=== PATIENT | male | born 1985 | race American Indian/Alaskan Native ===

== ENCOUNTER 2016-08-25 17:17 | Emergency (ER) | payer SELFPAY ==
--- NOTE | 2016-08-25 18:09 | Emergency Department Report ---
ED Male HPI - General Chief complaint: Urogenital-Male Stated complaint: TESTICULAR PAIN/SWOLLEN Source: patient Mode of arrival: Ambulatory Limitations: No Limitations - History of Present Illness Initial comments: Patient here complaining that he had pain and swelling to his left testicle for the last couple days. Denies any urinary burning frequency or urgency. Denies abdominal pain. Denies any back pain. Denies Trauma. He reports chills. Reports pain level to be 6 out of 10. Denies any penile discharge or erythema. Any nausea vomiting. Denies Concern for STDs. Denies any blood in urine. MD Complaint: testicle pain, testicle swelling Onset/Timin -: days(s) Location: left testicle Radiation: none Severity: severe Severity scale (0 -10): 6 Quality: aching Improves with: none Worsens with: palpation, movement denies other symptoms - Related Data Sexually active: Yes Previous Rx's Medication Instructions Recorded Last Taken Type Ibuprofen [Motrin] 600 mg PO Q8H PRN #15 tablet 08/25/16 Unknown Rx Levofloxacin [Levaquin TAB] 500 mg PO QDAY #7 tablet 08/25/16 Unknown Rx Allergies Allergy/AdvReac Type Severity Reaction Status Date / Time No Known Allergies Allergy Verified 08/25/16 17:53 ED Review of Systems ROS: Stated complaint: TESTICULAR PAIN/SWOLLEN Other details as noted in HPI Comment: All other systems reviewed and negative Constitutional: chills. denies: malaise, weakness Respiratory: no symptoms reported Cardiovascular: denies: chest pain, palpitations, edema, syncope Gastrointestinal: denies: abdominal pain, nausea, vomiting, diarrhea, constipation Genitourinary: testicular pain. denies: frequency, hematuria, discharge, testicular mass Musculoskeletal: denies: back pain, arthralgia Skin: denies: rash Neurological: denies: headache ED Past Medical Hx - Past Medical History Previous Medical History?: No - Surgical History Past Surgical History?: No - Family History Family history: hypertension - Social History Smoking Status: Current Every Day Smoker Substance Use Type: Alcohol - Medications Home Medications: Home Medications Medication Instructions Recorded Confirmed Last Taken Type Ibuprofen [Motrin] 600 mg PO Q8H PRN #15 tablet 08/25/16 Unknown Rx Levofloxacin [Levaquin TAB] 500 mg PO QDAY #7 tablet 08/25/16 Unknown Rx ED Physical Exam - General Limitations: No Limitations General appearance: alert, in no apparent distress - Head Head exam: Present: atraumatic, normocephalic, normal inspection - Eye Eye exam: Present: normal appearance, PERRL, EOMI Pupils: Present: normal accommodation - ENT ENT exam: Present: normal exam, normal orophraynx, mucous membranes moist, TM's normal bilaterally, normal external ear exam - Respiratory Respiratory exam: Present: normal lung sounds bilaterally. Absent: respiratory distress - Cardiovascular Cardiovascular Exam: Present: regular rate, normal rhythm, normal heart sounds - GI/Abdominal GI/Abdominal exam: Present: soft, normal bowel sounds. Absent: distended, tenderness, guarding, rebound, rigid - exam: Present: testicular tenderness (left), scrotal swelling (left). Absent : urethral discharge, circumcision External exam: Present: normal external exam, swelling. Absent: erythema, lesions, lacerations, ecchymosis, bleeding - Expanded Exam Expanded Male exam: Absent: phimosis, paraphimosis, penile swelling, lesions, induration, erythema, perineal induration, balanitis, priapism exam: Testicular Tenderness: Left, Testicular Swelling: Left, Epididymal Tenderness: Left - Extremities Exam Extremities exam: Present: normal inspection, full ROM, normal capillary refill. Absent: tenderness, pedal edema - Back Exam Back exam: Present: normal inspection, full ROM. Absent: tenderness, CVA tenderness (R), CVA tenderness (L), muscle spasm, paraspinal tenderness, vertebral tenderness, rash noted - Neurological Exam Neurological exam: Present: alert, oriented X3, normal gait - Psychiatric Psychiatric exam: Present: normal affect, normal mood - Skin Skin exam: Present: warm, dry, intact, normal color. Absent: rash ED Course Vital Signs 08/25/16 08/25/16 17:47 18:25 Temperature 100.8 F H Pulse Rate 94 H Respiratory 16 18 Rate Blood Pressure 138/74 O2 Sat by Pulse 98 100 Oximetry Vital Signs 08/25/16 08/25/16 08/25/16 17:47 18:25 19:03 Temperature 100.8 F H 98.2 F Pulse Rate 94 H 75 Respiratory 16 18 16 Rate Blood Pressure 138/74 Blood Pressure 144/75 [Left] O2 Sat by Pulse 98 100 100 Oximetry - Reevaluation(s) Reevaluation #1: 08/25/16 19:56 Patient stable throughout ED course. She was treated empirically for STDs. Tolerated medication well. Vital signs remained stable. He is afebrile. Patient given 1 L of IV fluid in emergency room and pain controlled with [place]. ED Medical Decision Making - Lab Data Result diagrams: 08/25/16 18:09 08/25/16 18:09 Lab Results 08/25/16 08/25/16 08/25/16 Range/Units 18:09 18:09 Unknown WBC 17.6 H (4.5-11.0) K/mm3 RBC 4.99 (3.65-5.03) M/mm3 Hgb 13.7 (11.8-15.2) gm/dl Hct 40.0 (35.5-45.6) % MCV 80 L (84-94) fl MCH 27 L (28-32) pg MCHC 34 (32-34) % RDW 13.6 (13.2-15.2) % Plt Count 280 (140-440) K/mm3 Lymph % (Auto) 9.9 L (13.4-35.0) % [place] % (Auto) 8.0 H (0.0-7.3) % Eos % (Auto) 0.1 (0.0-4.3) % Baso % (Auto) 0.1 (0.0-1.8) % Lymph # 1.7 (1.2-5.4) K/mm3 [place] # 1.4 H (0.0-0.8) K/mm3 Eos # 0.0 (0.0-0.4) K/mm3 Baso # 0.0 (0.0-0.1) K/mm3 Seg Neutrophils % 81.9 H (40.0-70.0) % Seg Neutrophils # 14.5 H (1.8-7.7) K/mm3 Sodium 139 (137-145) mmol/L Potassium 4.6 (3.6-5.0) mmol/L Chloride 98.4 (98-107) mmol/L Carbon Dioxide 28 (22-30) mmol/L Anion Gap 17 mmol/L BUN 9 (9-20) mg/dL Creatinine 0.9 (0.8-1.5) mg/dL Estimated GFR > 60 ml/min BUN/Creatinine Ratio 10.00 % Glucose 98 (75-100) mg/dL Calcium 9.7 (8.4-10.2) mg/dL Urine Bilirubin Neg (Negative) Urine RBC (Auto) 1.0 (0.0-6.0) /HPF U Epithel Cells (Auto) 1.0 (0-13.0) /HPF Urine culture pending - Radiology Data Radiology results: report reviewed Ultrasound of the testes revealed normal blood flow. Suspicious for epididymitis. Probably Left epididymitis. Small left hydrocele - Medical Decision Making ED course: Patient here for left testicular pain and swelling. Ultrasound revealed left epididymitis with hydrocele. I discussed the patient ultrasound results and lab tests and I instructed him that he has bladder infection. Patient is asymptomatic for STDs. He has no concerns for STDs. Patient does have sex with one partner and he said that she said having any symptoms. She patient and present treatment and he agrees. Patient given Rocephin 1 g IV, Zofran 4 mg IV and [place] 5/325 one tablet by mouth. She was also covered with Flagyl 2 g and Zithromax 1 g by mouth. Chin has no adverse reaction from medication. I discussed the patient diagnosis and treatment plan and is in agreement. I discussed with him that he will need to follow-up with primary care physician in 2-3 days and if he does not have one that he will need to follow-up with outside Medical Center. Discussed with him that he needs to converse with his partner that he was treated for STD and particulate in emergency room. Patient discharged home with prescription for Levaquin Critical care attestation.: If time is entered above; I have spent that time in minutes in the direct care of this critically ill patient, excluding procedure time. ED Disposition Clinical Impression: Left epididymitis, Left hydrocele, Left testicular pain, Acute cystitis without hematuria Leukocytosis Qualifiers: Leukocytosis type: unspecified Qualified Code(s): D72.829 - Elevated white blood cell count, unspecified Disposition: DISCHARGED TO HOME OR SELFCARE Is pt being admited?: No Does the pt Need Aspirin: No Condition: Stable Instructions: Epididymitis (ED), Testicle Pain (ED), Hydrocele (ED), Urinary Tract Infection in Men (ED), Leukocytosis (ED) Additional Instructions: Please increase fluid intake Follow-up with her primary care physician in 2-3 days and if you do not have one then follow-up with outside Medical Center. Practice safe sex. Take antibiotic as prescribed. Prescriptions: Levofloxacin [Levaquin TAB] 500 mg PO QDAY #7 tablet Ibuprofen [Motrin] 600 mg PO Q8H PRN #15 tablet PRN Reason: Pain Referrals: [facility] [Outside] - 2-3 Days [facility] [Provider Group] - 2-3 Days Forms: STI Treatment and Prevention, Accompanied Note, Work/School Release Form (ED)
--- NOTE | 2016-08-25 18:12 | Emergency Department Report ---
Chief Complaint: Urogenital-Male Stated Complaint: TESTICULAR PAIN/SWOLLEN Time Seen by Provider: 08/25/16 18:00 - HPI History of Present Illness: Patient is a 31-year-old male who presents to ED complaining of left testicular swelling and pain 2 days. Patient's is 2 days ago he notices testicular, left side was swollen and then he began expressing pain. Patient states pain is localized to left scrotum area nonradiating patient states pain is worsened with movement. He rates the pain 6 out of 10 intensity Patient denies nausea vomiting dysuria pain with sex. No discharge. No bleeding or blood in the urine - ROS Review of Systems: As noted in HPI - Exam Vital Signs: Vital Signs 08/25/16 17:47 Temperature 100.8 F H Pulse Rate 94 H Respiratory 16 Rate Blood Pressure 138/74 O2 Sat by Pulse 98 Oximetry Physical Exam: GENERAL: Alert and oriented x3, no apparent distress, Normal Gait, atraumatic. MOUTH:Mouth is well hydrated and without lesions. Tonsils nonerythematous or swollen, Uvula midline, Tongue not elevated. Mucous membranes are moist. Posterior pharynx clear, no exudate or lesions. Patent airways. NECK: Supple. Non edematous, No carotid bruits. No lymphadenopathy or thyromegaly. LUNGS: Symetrical with respiration, No wheezing, no rales or crackles, CTAB. HEART: S1, S2 present, regular rate and rhythm without murmur, no rubs, no gallops. ABDOMEN: No organomegaly was noted,Positive bowel sounds, soft, and non- distended. . Nontender to palpation on all Quadrants, NO CVA tenderness. UROGENITAL: left scrotal mass, Scrotum tender to palpation on left,non erythema , no hernia, no scars or penile discharge. SKIN: Warm and dry, No lesions, No ulceration or induration present. MSE screening note: Focused history and physical exam performed. Due to findings the following was ordered: ED Medical Decision Making - Medical Decision Making Labs ordered. Ultrasound Doppler scrotum ordered. Low-grade fever otherwise vital signs stable Patient taken back and put in a room to be seen in the main ED ED Disposition for MSE Condition: Stable
[2016-08-25 18:39] LABS: Anion Gap 17 mmol/L; Blood Urea Nitrogen 9 mg/dL (9-20); Calcium 9.7 mg/dL (8.4-10.2); Carbon Dioxide 28 mmol/L (22-30); Chloride 98.4 mmol/L (98-107); Glucose 98 mg/dL (75-100); Potassium 4.6 mmol/L (3.6-5.0); Sodium 139 mmol/L (137-145)
[2016-08-25 18:42] LABS: Basophils % (Auto) 0.1 % (0.0-1.8); Eosinophils % (Auto) 0.1 % (0.0-4.3); Hemoglobin 13.7 gm/dl (11.8-15.2); Mean Corpuscular HGB Conc 34 % (32-34); Mean Corpuscular Hemoglobin 27 pg (28-32); Mean Corpuscular Volume 80 fl (84-94); Platelet Count 280 K/mm3 (140-440); Red Blood Count 4.99 M/mm3 (3.65-5.03); Red Cell Distribution Width 13.6 % (13.2-15.2); White Blood Count 17.6 K/mm3 (4.5-11.0)
[2016-08-25] MEDS ORDERED: ZOFRAN IV ONE (18:47)
[2016-08-25] MEDS ORDERED: NACL 0.9% 1000 ML 1,000 ML IV ONE (18:47)
[2016-08-25] MEDS ORDERED: NORCO 5/325 PO ONE (18:47)
[2016-08-25] MEDS ORDERED: ROCEPHIN/NS 1 GM/50 ML 50 ML IV ONE (18:48)
[2016-08-25 19:30] LABS: Bilirubin,Urine NEG (Negative); Blood,Urine NEG (Negative); Ketones,Urine NEG (Negative); Leukocyte Esterase,Urine MOD (Negative); Mucus,Urine FEW /HPF; Nitrite,Urine NEG (Negative); Protein,Urine <15 mg/dL mg/dL (Negative); Urobilinogen,Urine < 2.0 mg/dL (<2.0)
--- NOTE | 2016-08-25 19:33 | Ultrasound Report ---
FINAL REPORT PROCEDURE: Scrotal ultrasound. TECHNIQUE: Real-time beltran-scale and color flow Doppler sonography in multiple planes of the scrotum, testicles, and epididymes was performed. Velocity spectral waveform analysis Doppler imaging of the arterial inflow and venous outflow of the testicles was performed with image documentation. CPT 19990 and [address]704 HISTORY: Left testicular pain. COMPARISON: No prior studies are available for comparison. FINDINGS: Both testes have uniform echogenicity. There are no focal masses. There is normal testicular blood flow demonstrated bilaterally. The right epididymal head appears normal. The left epididymis is enlarged. There is prominent color-flow signal in the epididymis. There is a small left hydrocele. The findings are suspicious for epididymitis. Clinical correlation is recommended. IMPRESSION: Probable left epididymitis. Small left hydrocele.
[2016-08-25] MEDS ORDERED: ZITHROMAX PO ONE (19:45)
[2016-08-25] MEDS ORDERED: FLAGYL PO ONE (19:45)
[2016-08-25 20:34] VITALS: BP 135/72
== END 2016-08-25 20:35 | disposition home or self-care (01) ==
LOC: ED 17:17
DX: N45.1 Epididymitis (principal); N30.00 Acute cystitis without hematuria; N43.3 Hydrocele, unspecified; N50.812 Left testicular pain; D72.829 Elevated white blood cell count, unspecified; F17.200 Nicotine dependence, unspecified, uncomplicated
CPT/HCPCS: 36415; 80048; 81001; 85025; 87086; 93975; 96365; 96375; 99284; J0696; J2405; J7030